=== PATIENT | male | born 1990 | race Caucasian/White ===

== ENCOUNTER 2023-08-18 14:50 | Emergency (ER) | payer OTHER, BC ==
[2023-08-18] MEDS: Lidocaine 1% 5 ML VIAL INJECT ONE (15:15)
[2023-08-18] MEDS: Bacitracin/Neomycin/Polymyxin B Oint 0.9 GM U/D Packet TOP ONE (15:27)
== END 2023-08-18 15:43 | disposition home or self-care (01) ==
LOC: LL.ED 14:50
DX: S61.211A Laceration without foreign body of left index finger without damage to nail, initial encounter (principal); W29.2XXA Contact with other powered household machinery, initial encounter
CPT/HCPCS: 12001; 99282; J3490